=== PATIENT | female | born 1990 | race Caucasian/White ===

== ENCOUNTER 2017-04-10 19:48 | Emergency (ER) | payer MEDICARE, MEDICAID ==
--- NOTE | 2017-04-10 19:50 | ED Physician Chart ---
Chief Complaint/HPI - Patient Information Date Seen:: 04/10/17 Time Seen:: 19:50 Chief Complaint:: abdominal pain History of Present Illness:: 26-year-old female history kidney stones, complains of acute, constant, moderate , 6 out of 10, aching, right lower quadrant abdominal pain started this morning. Associated burning on urination. Says she also had some associated dark urine earlier today. Allergies:: Allergies Allergy/AdvReac Type Severity Reaction Status Date / Time hydromorphone [From Dilaudid] Allergy Verified 09/03/16 17:34 ketorolac [From Toradol] Allergy Verified 09/03/16 15:37 metoclopramide [From Reglan] Allergy Verified 09/03/16 15:37 prochlorperazine Allergy Verified 09/03/16 15:37 [From Compazine] Historian:: Patient Review:: Nurse's Note Reviewed Review of Systems - Review of Systems Other: Complete system review otherwise unremarkable except as noted in history of present illness. Past Medical History - Past Medical History Past Medical History: Other (history of recurrent UTIs and kidney stones, migraine headaches) Family History: None Social History: Non Smoker, No Alcohol, No Drug Use, Other Surgical History: None Psychiatricy History: None Medication: Reviewed Family Medical History - Family Member Maternal Grandmother Ethnicity: Living Status: Still Living Hx Family Cancer: Yes Hx Family Diabetes: Yes Physical Exam - Physical Examination Other:: INITIAL VITAL SIGNS: Reviewed by me GENERAL: Alert and interactive. No acute distress HEAD: Head is normocephalic and atraumatic EYES: EOMI. PERRL. No scleral icterus. No conjunctival injection ENT: Moist mucous membranes. NECK: Supple. No masses. Full range of motion RESPIRATORY: No tachypnea. Clear breath sounds bilaterally. No wheezing, rales, or rhonchi CV: Regular rate and rhythm. No murmurs, rubs, or gallops ABDOMEN: Soft, non-distended, non-tender. No guarding. No rebound. No masses. EXTREMITIES: No deformity. No cyanosis. No edema. SKIN: Warm and dry. No obvious rashes. NEUROLOGIC: Alert and oriented. Face is symmetric. Speech is normal. Moves all extremities equally. Motor and sensory distally intact. ED Septic Shock - . Is Septic Shock (SBP<90, OR Lactate>4 mmol\L) present?: No Reassessment (Disposition) - Reassessment Reassessment:: Patient presents with acute right-sided abdominal pain and associated dysuria. Patient has multiple allergies to different pain medications. Patient was researched on the [employer] database and is receiving numerous and multiple prescriptions for acetaminophen with codeine, hydrocodone with acetaminophen, oxycodone and acetaminophen from different providers. Past 6 months reveal 12 different prescriptions. Most recently she had acetaminophen with codeine prescribed to her on 04/04/2017. I discussed this with the patient in detail informing her that she is getting multiple narcotic prescriptions from multiple providers. Not one of them is the same provider. Some of the prescribing physicians I know from different emergency departments that I work in the local area. I have offered to workup the abdominal pain and give her acetaminophen for now for pain control. Orders are placed. Nursing informs me that the patient is now leaving AGAINST MEDICAL ADVICE. It should be noted that the patient showed no signs of being in pain. Her exam was completely normal with no tenderness to palpation. Patient claims she did not know the name of the pain medication that she was taking. Now decided to leave AGAINST MEDICAL ADVICE Blood pressure was noted to be elevated over 120/80. There were no signs of hypertension. Discussed the findings with the patient and recommended that the patient follow up with the primary care physician regarding the elevated blood pressure. Reassessment Condition:: Improved - Diagnosis Diagnosis:: Acute right-sided abdominal pain Acute dysuria Elevated blood pressure without the diagnosis of hypertension - Patient Disposition Discharge/Transfer:: Against Medical Advice Time:: 20:15 Condition at Disposition:: Improved
== END 2017-04-10 20:15 | disposition left against medical advice (07) ==
LOC: ER 19:48
DX: R10.31 Right lower quadrant pain (principal); R30.0 Dysuria; R03.0 Elevated blood-pressure reading, without diagnosis of hypertension; Z88.8 Allergy status to other drugs, medicaments and biological substances
CPT/HCPCS: 81025-TC; Z7502